=== PATIENT | female | born 1960 | race Caucasian/White ===

== ENCOUNTER → 2016-12-23 | Outpatient (CLI) | payer BC, MEDICARE ==
[~2016-12-23] MED LIST: ACIPHEX20 MG PO; ALPRAZOLAM PO; AMITRYPTYLINE PO; BRINTELLIX10 MG PO; CARAFATE PO; CHANTIX; CLONAZEPAM2 MG PO; DESYREL150 M1 PO; DULERA 100 MCG/13 GM INH; EFFEXOR XR PO; ESCITALOPRAM OX20 MG PO; FLORINEF ACETA0.1 MG PO; HYDROCORTISONE PO; HYDROCORTISONE10 M1 PO; LASIX20 MG PO; LISINOPRIL PO; LORTAB 10/500 T1 TAB PO; LYRICA200 MG PO; METOCLOPRAMIDE H5 MG PO; NEXIUM PO; NORVASC PO; OXYCODON HCL-AP1 TA2 PO; PANTOPRAZOLE SO40 MG PO; PARAFON FORTE500 M2 PO; PERCOCET10 PO; PHENERGAN PO; PRISTIQ100 MG PO; PROTONIX PO; SAVELLA1 EACH PO; SEROQUEL PO; SPIRIVA RESPIMAT4 G1; TOPAMAX PO; TRICOR PO
--- NOTE | ~2016-12-23 | CR229 ---
[facility]. [facility] A Service of [facility] & [facility] RADIOLOGY TEXT RESULTS PATIENT: LATASHA CAMPBELL LOCATION: [facility] : 56 UNIT #: [id number] AGE: [address]: Fransisca Devine DIRECTOR OF STUDENT AID SEX: F ORDER DR: [id number] [address] [address] [id number] O MR#: [id number] Acc #: [id number] NAME: LATASHA CAMPBELL : 1960 SEX: F STUDY DATE/TIME: 12/23/2016 13:44 UNIT: [facility] ROOM: STUDY DESCRIPTION: CR Shoulder Min 2 View Lt Attending Physician: Fransisca Devine A.P.R.N. Referring Physician: Fransisca Devine A.P.R.N. Ordering Physician: Fransisca Devine A.P.R.N. Primary Care Physician: Fransisca Devine A.P.R.N. MEDICAL IMAGING REPORT This report is preliminary unless electronic signature is present. EXAM Left shoulder, 12/23/2016 HISTORY 56-year-old female with left shoulder pain for 1 year. No specific injury. COMPARISON None. FINDINGS Three views of the left shoulder demonstrate no acute fracture or dislocation. Acromioclavicular joint is within expected limits. Soft tissues are unremarkable. IMPRESSION Unremarkable left shoulder. Dictated by... Guerrero Pichardo M.D. THIS IS AN ELECTRONICALLY VERIFIED REPORT Guerrero Pichardo M.D. at 12/24/2016 7:44 AM BRENT/shreya TD: 12/24/2016 02:41 JOB #: [id number] MEDICAL IMAGING REPORT Page 1 of 1
== END | disposition home or self-care (01) ==
LOC: SRAD 13:37
DX: M25.512 Pain in left shoulder (principal)
CPT/HCPCS: 73030